=== PATIENT | female | born 1975 | race Caucasian/White ===

== ENCOUNTER 2021-02-09 15:15 | Emergency (ER) | payer SELFPAY ==
[~2021-02-09] VITALS: Ht 172.7 cm; Wt 108.0 kg
[2021-02-09 15:24] VITALS: BP 158/99
--- NOTE | 2021-02-09 16:02 | NUR ---
PT AMBULATED TO CHAIR A.
--- NOTE | 2021-02-09 16:14 | NUR ---
TYLER HOLLIS BEDSIDE EVALUATING PT
[2021-02-09] MEDS ORDERED: KETOROLAC 30 MG/ML VIAL IM ONE (16:20)
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
[2021-02-09] MEDS ORDERED: NAPR-54 PO (18:03)
[2021-02-09] MEDS ORDERED: CYCL-711 PO (18:04)
[2021-02-09 18:13] VITALS: BP 149/87
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
== END 2021-02-09 18:15 | disposition home or self-care (01) ==
LOC: MED 15:15
DX: S16.1XXA Strain of muscle, fascia and tendon at neck level, initial encounter (principal); S80.02XA Contusion of left knee, initial encounter; Z79.1 Long term (current) use of non-steroidal anti-inflammatories (NSAID); Z79.899 Other long term (current) drug therapy; V89.2XXA Person injured in unspecified motor-vehicle accident, traffic, initial encounter; Y93.89 Activity, other specified; Y92.410 Unspecified street and highway as the place of occurrence of the external cause; Y99.9 Unspecified external cause status
CPT/HCPCS: 73562; 96372; 99283; J1885